=== PATIENT | male | born 1990 | race Hispanic/Latino ===

== ENCOUNTER 2017-09-27 00:15 | Emergency (ER) | payer OTHER ==
[2017-09-27] MEDS ORDERED: MORPHINE SULFATE 4 MG/1ML SYG ONE (00:51)
[2017-09-27] MEDS ORDERED: SODIUM CHLORIDE 0.9% 1000ML 1,000 ML IV ONE (00:51)
[2017-09-27] MEDS ORDERED: TETANUS/DIPHTHERIA TOXOID [ADULT] 0.5 ML VIAL IM ONE (00:52)
[2017-09-27] MEDS ORDERED: LIDOCAINE HCL 1% MDV 50ML VIAL ONE (01:02)
[2017-09-27] MEDS ORDERED: MORPHINE SULFATE 2 MG/ML 1ML SYG ONE (01:10)
[2017-09-27] MEDS ORDERED: CEFTRIAXONE SODIUM 1 GM ONE (01:21)
== END 2017-09-27 02:02 | disposition home or self-care (01) ==
LOC: EDH 00:15
DX: S62.655A Nondisplaced fracture of middle phalanx of left ring finger, initial encounter for closed fracture (principal); F31.9 Bipolar disorder, unspecified; F29 Unspecified psychosis not due to a substance or known physiological condition; I10 Essential (primary) hypertension; Z88.8 Allergy status to other drugs, medicaments and biological substances; W26.8XXA Contact with other sharp object(s), not elsewhere classified, initial encounter; Y93.89 Activity, other specified; Y92.511 Restaurant or cafe as the place of occurrence of the external cause; Y99.8 Other external cause status
CPT/HCPCS: 29130; 73130 ×2; 90471; 90714; 96374; 96375; 99284; J0696; J2270; J3490; J7030

== ENCOUNTER 2020-01-28 21:19 | Emergency (ER) | payer OTHER ==
[2020-01-28 21:57] LABS: BASOPHILS % (AUTO) 0.3 % (0.0-5.0); EOSINOPHILS % (AUTO) 0.1 % (0.0-8.0); HEMATOCRIT 42.9 % (42-54); LYMPHOCYTES % (AUTO) 7.6 % (21.0-51.0); MEAN CORPUSCULAR HEMOGLOBIN 29.1 pg (27.0-33.0); MEAN CORPUSCULAR HGB CONC 34.5 g/dL (32.0-36.0); MEAN CORPUSCULAR VOLUME 84.4 fL (79-99); NEUTROPHILS % (AUTO) 86.6 % (40.0-77.0); PLATELET COUNT (AUTO) 310 K/uL (130-400); RED BLOOD CELL COUNT(AUTO) 5.08 MIL/uL (4.50-6.20); RED CELL DISTRIBUTION WIDTH 12.9 % (11.0-15.5); WHITE BLOOD COUNT (AUTO) 15.6 K/uL (4.8-10.8)
[2020-01-28 22:06] LABS: INR 0.99 (0.85-1.15); PARTIAL THROMBOPLASTIN TIME 26.1 SEC (26.3-35.5); PROTHROMBIN TIME 10.7 SEC (9.6-11.6)
[2020-01-28 22:27] LABS: ALANINE AMINOTRANSFERASE 97 U/L (12-78); ALBUMIN 3.9 g/dL (3.5-5.0); ALCOHOL, BLOOD < 3 mg/dL (0-10); ASPARTATE AMINOTRANSFERASE 144 U/L (10-37); BILIRUBIN,TOTAL 0.7 mg/dL (0.2-1.0); CARBON DIOXIDE 29 mmol/L (21-32); CHLORIDE 104 mmol/L (101-111); CREATININE 1.2 mg/dL (0.5-1.5); GLOMERULAR FILTR. RATE CALC 75 mL/min (>60); GLUCOSE,RANDOM 143 mg/dL (70-105); SODIUM SERUM 141 mmol/L (136-145); TOTAL PROTEIN, SERUM 7.7 g/dL (6.0-8.3); UREA NITROGEN, BLOOD 15 mg/dL (7-18)
[2020-01-28 22:28] LABS: ACETAMINOPHEN < 1 mcg/mL (10-29); SALICYLATE < 2.8 mg/dL (2.8-20.0)
[2020-01-28 22:30] LABS: CREATINE KINASE, TOTAL 4931 U/L (21-232); POTASSIUM 2.9 mmol/L (3.5-5.1)
== END 2020-01-28 22:00 | disposition left against medical advice (07) ==
LOC: EDH 21:19
DX: R42 Dizziness and giddiness (principal); T40.5X5A Adverse effect of cocaine, initial encounter; R44.1 Visual hallucinations; F41.9 Anxiety disorder, unspecified; F31.9 Bipolar disorder, unspecified; I10 Essential (primary) hypertension; Z88.8 Allergy status to other drugs, medicaments and biological substances; Y92.89 Other specified places as the place of occurrence of the external cause
CPT/HCPCS: 36415; 80053; 82550; 84484; 85025; 85610; 85730; 93005; 99285; G0481